=== PATIENT | female | born 1975 | race Caucasian/White ===

== ENCOUNTER → 2017-05-31 | Outpatient (CLI) | payer OTHER ==
[2017-05-31 13:25] LABS: PLATELET COUNT, AUTOMATED 263 K/uL (150-450)
== END ==
LOC: LAB 12:34
PROVIDERS: ATTEND Nurse Practitioner Family
DX: Z36.0 Encounter for antenatal screening for chromosomal anomalies (principal); Z01.83 Encounter for blood typing; Z13.29 Encounter for screening for other suspected endocrine disorder; Z31.41 Encounter for fertility testing
CPT/HCPCS: 36415; 83520; 84443; 85025; 86592; 86703; 86762; 86803; 86850; 86900; 86901; 87340

== ENCOUNTER → 2017-06-15 | Outpatient (CLI) | payer OTHER | LOC: LAB 12:26 | PROVIDERS: ATTEND Chiropractor Internist | DX: R53.83 Other fatigue (principal) | CPT/HCPCS: 36415; 84439; 84443; 84481 ==

== ENCOUNTER → 2017-07-09 | Outpatient (CLI) | payer OTHER | LOC: LAB 08:29 | PROVIDERS: ATTEND Obstetrics & Gynecology Gynecology | DX: Z31.41 Encounter for fertility testing (principal) | CPT/HCPCS: 36415; 82670 ==

== ENCOUNTER → 2017-07-16 | Outpatient (CLI) | payer OTHER | LOC: LAB 09:11 | PROVIDERS: ATTEND Physician Assistant | DX: Z31.41 Encounter for fertility testing (principal) | CPT/HCPCS: 36415; 82670; 84144 ==